=== PATIENT | female | born 1940 | race Caucasian/White ===

== ENCOUNTER 2016-06-07 13:25 | Emergency (ER) | payer MEDICARE, BC ==
[~2016-06-07] VITALS: Ht 157.5 cm; Wt 88.0 kg
[~2016-06-07 13:25] MED LIST: ALBU8.5H3 INH; ASPI-496 PO; ATOR20TA PO; CHOL10003 PO; CIPR500T87 PO; CITA20TA5 PO; CYAN10005 PO; FOLI0.8T2 PO; GLUC1CAP40 PO; HYDR-3138 PO; LACT1TAB3 PO; METR500T PO; MILK200C2 PO; MIRT7.5T8 PO; MULT-115 PO; OMEG1CAP34 PO; PANT40TA3 PO; PHYT100T PO; SELE200C PO; TADA20TA PO; TURM500C7 PO; VITA400C40 PO; ZINC50CA PO; calcium,mag,zinc PO
[2016-06-07] MEDS ORDERED: ONDANSETRON 2MG/ML, 2ML IVPush ONE (14:00)
[2016-06-07] MEDS ORDERED: MORPHINE SULFATE 4 MG/ML, 1ML IVPush PRN (14:00)
[2016-06-07] MEDS ORDERED: SODIUM CHLORIDE FLUSH 10ML SYR IVF ONE (14:00)
[2016-06-07] MEDS ORDERED: LEVO25TA2 PO (14:16)
[2016-06-07] MEDS ORDERED: DULO20CA45 PO (14:16)
[2016-06-07] MEDS ORDERED: ATOR20TA9 PO (14:16)
[2016-06-07 14:21] LABS: BLOOD UREA NITROGEN 9 mg/dL (7-18)
[2016-06-07] MEDS ORDERED: KETOROLAC 30 MG/1 ML ONE (16:47)
[2016-06-07 16:53] VITALS: BP 147/75
[2016-06-07] MEDS ORDERED: KETOROLAC 30 MG/1 ML IVPush ONE (17:00)
[2016-06-07] MEDS ORDERED: OMNIPAQUE 350 MG/ML, 100ML BOTTLE ONE (17:28)
== END 2016-06-07 17:47 | disposition home or self-care (01) ==
LOC: ED 14:57
DX: S20.211A Contusion of right front wall of thorax, initial encounter (principal); I10 Essential (primary) hypertension; W19.XXXA Unspecified fall, initial encounter; Y93.89 Activity, other specified; Y92.89 Other specified places as the place of occurrence of the external cause; Y99.8 Other external cause status
CPT/HCPCS: 36415; 71020; 74177; 80048; 82040; 85025; 93005; 96374; 99285; J1885; Q9967

== ENCOUNTER → 2016-06-30 | Outpatient (CLI) | payer MEDICARE, BC ==
[~2016-06-30] MED LIST changes: +ATOR20TA9 PO; +DULO20CA45 PO; +LEVO25TA2 PO
== END | disposition home or self-care (01) ==
LOC: CFH 13:28
PROVIDERS: ATTEND Family Medicine
DX: J43.9 Emphysema, unspecified (principal); J98.11 Atelectasis; M51.34 Other intervertebral disc degeneration, thoracic region; S22.41XD Multiple fractures of ribs, right side, subsequent encounter for fracture with routine healing; J18.9 Pneumonia, unspecified organism; I25.10 Atherosclerotic heart disease of native coronary artery without angina pectoris; J98.4 Other disorders of lung; X58.XXXD Exposure to other specified factors, subsequent encounter
CPT/HCPCS: 71250

== ENCOUNTER → 2016-11-12 | Outpatient (CLI) | payer MEDICARE, BC ==
[~2016-11-12] MED LIST changes: -ALBU8.5H3 INH; +ALBU8.5H8 INH; -HYDR-3138 PO; +HYDR-3237 PO; +OMNIPAQUE 350 MG/ML, 75ML BOTTLE ONE; -VITA400C40 PO; +VITA400C43 PO
== END | disposition home or self-care (01) ==
LOC: CFH 12:58
PROVIDERS: ATTEND Internal Medicine Pulmonary Disease
DX: J43.2 Centrilobular emphysema (principal); I70.0 Atherosclerosis of aorta; I25.10 Atherosclerotic heart disease of native coronary artery without angina pectoris; K76.0 Fatty (change of) liver, not elsewhere classified; M47.894 Other spondylosis, thoracic region; G47.33 Obstructive sleep apnea (adult) (pediatric); J31.0 Chronic rhinitis
CPT/HCPCS: 71260; 82565; Q9967

== ENCOUNTER → 2017-02-25 | Outpatient (CLI) | payer MEDICARE, BC ==
[~2017-02-25] MED LIST changes: -OMNIPAQUE 350 MG/ML, 75ML BOTTLE ONE
== END | disposition home or self-care (01) ==
LOC: CFH 12:22
PROVIDERS: ATTEND Internal Medicine
DX: Z12.31 Encounter for screening mammogram for malignant neoplasm of breast (principal)
CPT/HCPCS: 77067

== ENCOUNTER → 2017-03-12 | Outpatient (CLI) | payer MEDICARE, BC | LOC: CFH 12:09 | PROVIDERS: ATTEND Registered Nurse | DX: J43.2 Centrilobular emphysema (principal); R91.8 Other nonspecific abnormal finding of lung field | CPT/HCPCS: 71250 ==

== ENCOUNTER → 2020-02-27 | Outpatient (CLI) | payer MEDICARE, BC ==
[~2020-02-27] MED LIST changes: +ATOR20TA37 PO; -ATOR20TA9 PO; -CITA20TA5 PO; +CITA20TA6 PO; +CYAN-27 PO; -CYAN10005 PO; +REGADENOSON 0.4 MG/5 ML SYRINGE ONE
== END | disposition home or self-care (01) ==
LOC: CFH 12:31
PROVIDERS: ATTEND Internal Medicine Cardiovascular Disease
DX: I08.8 Other rheumatic multiple valve diseases (principal); I27.23 Pulmonary hypertension due to lung diseases and hypoxia
CPT/HCPCS: 78452; 93017; 93306; A9502; J2785